=== PATIENT | male | born 1955 | race Two or more races ===

== ENCOUNTER 2017-03-27 12:22 | Inpatient (IN) | payer BC ==
[2017-03-27 13:32] VITALS: BMI 26.8
--- NOTE | 2017-03-27 17:27 | HP ---
CIWA Score - CIWA Score Nausea/Vomitin-Mild Nausea/No Vomiting Muscle Tremors: 4-Moderate,w/Arms Extend Anxiety: 4-Mod. Anxious/Guarded Agitation: 4-Moderately Restless Paroxysmal Sweats: 1-Minimal Palms Moist Orientation: 1-Uncertain about Date Tacttile Disturbances: 1-Very Mild Itch/Numbness Auditory Disturbances: 0-None Visual Disturbances: 0-None Headache: 0-None Present CIWA-Ar Total Score: 16 Admission ROS S - HPI Chief Complaint: WITHDRAWAL SX Allergies/Adverse Reactions: Allergies Allergy/AdvReac Type Severity Reaction Status Date / Time No Known Drug Allergies Allergy Verified 03/27/17 16:19 History of Present Illness: 62 YEARS OLD MALE WITH LONG HISTORY OF ALCOHOL DEPENDENCE HAS DIABETES II DEMENTIA AND DEPRESSION IS ADMITTED TO DETOX Exam Limitations: No Limitations - Ebola screening Have you traveled outside of the country in the last 21 days: No Have you had contact with anyone from an Ebola affected area: No Have you been sick,other than usual withdrawal symptoms: No Do you have a fever: No - Review of Systems Constitutional: Changes in sleep, Weight Stable EENT: reports: Hearing Loss (BOTH EARS) Respiratory: reports: SOB with Exertion, Productive cough (BROWN) Cardiac: reports: No Symptoms Reported GI: reports: Nausea, Poor Fluid Intake, Abdominal cramping : reports: No Symptoms Reported Musculoskeletal: reports: No Symptoms Reported Integumentary: reports: No Symptoms Reported Neuro: reports: Tremors Endocrine: reports: Increased Urine Hematology: reports: No Symptoms Reported Psychiatric: reports: Judgement Intact, Depressed Other Systems: Reviewed and Negative Patient History - Patient Medical History Hx Anemia: No Hx Asthma: Yes (Pt is on albuterol IH) Hx Chronic Obstructive Pulmonary Disease (COPD): No Hx Cancer: No Hx Cardiac Disorders: No Hx Congestive Heart Failure: No Hx Hypertension: No Hx Hypercholesterolemia: No Hx Pacemaker: No HX Cerebrovascular Accident: No Hx Seizures: No Hx Dementia: No Hx Diabetes: Yes (Yes, BGM: 342mg/dl) Hx Gastrointestinal Disorders: No Hx Liver Disease: No Hx Genitourinary Disorders: No Hx Sexually Transmitted Disorders: No Hx Renal Disease (ESRD): No Hx Thyroid Disease: No Hx Human Immunodeficiency Virus (HIV): No Hx Hepatitis C: No Hx Depression: Yes Hx Suicide Attempt: No Hx Bipolar Disorder: No Hx Schizophrenia: No - Patient Surgical History Past Surgical History: No Hx Neurologic Surgery: No Hx Cataract Extraction: No Hx Cardiac Surgery: No Hx Lung Surgery: No Hx Breast Surgery: No Hx Breast Biopsy: No Hx Abdominal Surgery: No Hx Appendectomy: No Hx Cholecystectomy: No Hx Genitourinary Surgery: No Hx Orthopedic Surgery: No Anesthesia Reaction: No - PPD History Previous Implant?: Yes Documented Results: Negative w/o proof Implanted On Prior R Admission?: No PPD to be Administered?: Yes - Smoking Cessation Smoking history: Never smoked Have you smoked in the past 12 months: No Hx Chewing Tobacco Use: No Initiated information on smoking cessation: No - Substance & Tx. History Hx Alcohol Use: Yes Hx Substance Use: No Substance Use Type: Alcohol Hx Substance Use Treatment: Yes (2012) - Substances Abused Alcohol Route: Oral Frequency: Daily Amount used: Beer 10 [id number] Age of first use: 26 Date of Last Use: 03/26/17 Family Disease History - Family Disease History Family Disease History: [place]: Mother (), Other: Father (), Mother , Brother (/KILLED) Admission Physical Exam [facility] - Vital Signs Vital Signs: Vital Signs - 24 hr 03/27/17 13:31 Temperature 97.0 F L Pulse Rate 118 H Respiratory 17 Rate Blood Pressure 148/90 - Physical General Appearance: Yes: Appropriately Dressed, Moderate Distress, Alcohol on Breath, Tremorous, Irritable, Sweating, Anxious HEENTM: Yes: Hearing grossly Normal, Normal ENT Inspection, Normocephalic, Normal Voice Respiratory: Yes: Chest Non-Tender, No Respiratory Distress, No Accessory Muscle Use, Wheezing, Expiration Neck: Yes: Supple, Trachea in good position Breast: Yes: Breasts Symetrical Cardiology: Yes: Regular Rhythm, S1, S2, Murmur, Tachycardia Abdominal: Yes: Non Tender, Soft, Increased Bowel Sounds Genitourinary: Yes: Within Normal Limits Back: Yes: Normal Inspection Musculoskeletal: Yes: full range of Motion, Gait Steady, Back pain Extremities: Yes: Normal Range of Motion, Non-Tender, Tremors Neurological: Yes: Alert, Motor Strength 5/5, Normal Response, Depressed Affect Integumentary: Yes: Warm Lymphatic: Yes: Within Normal Limits - Diagnostic (1) Alcohol dependence with uncomplicated withdrawal Current Visit: Yes Status: Acute (2) Asthma Current Visit: Yes Status: Chronic Qualifiers: Asthma severity: moderate Asthma complication type: with status asthmaticus (3) Dementia Current Visit: Yes Status: Chronic Qualifiers: Dementia type: associated with alcoholism Dementia behavioral disturbance: without behavioral disturbance Qualified Code(s): F10.97 - Alcohol use, unspecified with alcohol-induced persisting dementia (4) Depression with anxiety Current Visit: Yes Status: Suspected (5) Diabetes mellitus type II, uncontrolled Current Visit: Yes Status: Chronic Qualifiers: Diabetes mellitus complication status: without complication Diabetes mellitus joint terminal attack controller insulin use: without joint terminal attack controller use Qualified Code(s): E11.65 - Type 2 diabetes mellitus with hyperglycemia Cleared for Admission S - Detox or Rehab [facility] Level of Care: Medically Managed Detox Regimen/Protocol: Librium S Breath Alcohol Content Breath Alcohol Content: 0.182 Urine Drug Screen - Results Drug Screen Negative: Yes
[2017-03-27] MEDS ORDERED: MAGNESIUM CITRATE 300 ML BOTTLE PO PRN (17:34)
[2017-03-27] MEDS ORDERED: guaiFENesin/D-METHORPHAN HB 10 ML UNIT-DOSE CUPS PO PRN (17:34)
[2017-03-27] MEDS ORDERED: MAG HYDROX/AL HYDROX/SIMETH 30 ML UNIT-DOSE CUP PO PRN (17:34)
[2017-03-27] MEDS ORDERED: MENTHOL/PHENOL 1 EACH UD MM PRN (17:34)
[2017-03-27] MEDS ORDERED: chlordiazePOXIDE HCL 25 MG CAPSULE PO PRN (17:34)
[2017-03-27] MEDS ORDERED: P-EPHED 60MG/TRIPROLIDI 2.5MG TABLET PO PRN (17:34)
[2017-03-27] MEDS ORDERED: LOPERAMIDE HCL 2 MG CAPSULE PO PRN (17:34)
[2017-03-27] MEDS ORDERED: MAGNESIUM HYDROX 2400MG/30ML ORAL SUSPENSION 30 ML CUP PO PRN (17:34)
[2017-03-27] MEDS ORDERED: ALBUTEROL SO4 18 GM HFA INHALER IH PRN (17:43)
[2017-03-27] MEDS ORDERED: ALBUTEROL SO4 0.083% IH SOL 2.5 MG/3 ML VIAL.NEB. NEB PRN (17:43)
[2017-03-27] MEDS ORDERED: chlordiazePOXIDE HCL 25 MG CAPSULE PO ONE (18:45)
[2017-03-27] MEDS ORDERED: INSULIN (NOVOLOG) ASPART 100 UNITS/ML 10ML VIAL SQ ONE (19:11)
[2017-03-27] MEDS ORDERED: glipiZIDE 5 MG TABLET (FP) PO SCH (22:00)
[2017-03-27] MEDS: THIAMINE HCL 100 MG TABLET (FP) PO SCH (22:05)
[2017-03-27] MEDS: chlordiazePOXIDE HCL 25 MG CAPSULE PO SCH (22:05)
[2017-03-27 22:09] LABS: URINE APPEARANCE CLEAR; URINE BILIRUBIN NEGATIVE (NEGATIVE); URINE BLOOD 1+ (NEGATIVE); URINE COLOR STRAW; URINE GLUCOSE (UA) 3+ (NEGATIVE); URINE KETONE TRACE (NEGATIVE); URINE LEUK ESTERASE NEGATIVE (NEGATIVE); URINE NITRITE NEGATIVE (NEGATIVE); URINE PROTEIN NEGATIVE (NEGATIVE); URINE UROBILINOGEN NEGATIVE mg/dL (0.2-1.0)
[2017-03-27 23:10] LABS: URINE BACTERIA RARE /hpf (NONE SEEN); URINE MUCUS RARE
[2017-03-28] MEDS: chlordiazePOXIDE HCL 25 MG CAPSULE PO SCH ×4 (05:33→22:07)
[2017-03-28] MEDS: IBUPROFEN 400 MG TABLET (FP) PO PRN ×2 (05:55→18:19)
[2017-03-28] MEDS: metFORMIN HCL 500 MG TABLET (FP) PO SCH ×2 (06:32→17:44)
[2017-03-28] MEDS: sitaGLIPtin PHOSPHATE 100 MG TABLET (FP) PO SCH (06:32)
[2017-03-28] MEDS: glipiZIDE 5 MG TABLET (FP) PO SCH ×2 (06:33→17:44)
[2017-03-28] MEDS ORDERED: PATIENT'S OWN MEDICATION (NON-FORMULARY) (Metformin Hcl [Glucophage] 1,000 MG) PO SCH (07:00)
[2017-03-28] MEDS ORDERED: INSULIN SLIDING SCALE (NOVOLOG) 1 VIAL SQ SCH (07:00)
[2017-03-28] MEDS ORDERED: INSULIN (NOVOLOG) ASPART 100 UNITS/ML 10ML VIAL ONE ×2 (07:41→16:53)
[2017-03-28] MEDS: INSULIN SLIDING SCALE (NOVOLOG) 1 VIAL SQ SCH ×2 (07:54→17:44)
[2017-03-28 09:56] LABS: HEMATOCRIT 40.4 % (35.4-49); HEMOGLOBIN 13.4 GM/dL (11.7-16.9); MCH 27.7 pg (25.7-33.7); MCHC 33.1 g/dl (32.0-35.9); MEAN CELL VOLUME 83.6 fl (80-96); MEAN PLT VOLUME 9.7 fl (7.5-11.1); PLATELET COUNT 117 K/MM3 (134-434); RBC 4.83 M/mm3 (4.00-5.60); RDW 13.6 % (11.9-15.9); WHITE BLOOD COUNT 6.7 K/mm3 (4.0-10.0)
--- NOTE | 2017-03-28 09:58 | CONSULT ---
[facility] Psychiatric Consult - Data Date of interview: 03/28/17 Admission source: [facility] Identifying data: Pt. is a 63 year old male, single, 2 kids, unemployed, and on SSI. This is patient's first time at [facility]. Pt. admitted to for alcohol dependence. Substance Abuse History: Following information confirmed with Mr. Villarreal: * Alcohol- Route: Oral Frequency: Daily. Amount used: Beer 10 [id number]. Age of first use: 26 Date of Last Use: 03/26/17 Medical History: Asthma, diabetes. Psychiatric History: Pt. reports seeing an outpatient psychiatrist for 4 years and is currently being prescribed seroquel 100mg (has been on seroquel for 2 years). Pt. reports a diagnosis of depression and early stage dementia. As per pharmacy claims patient is currently prescribed aricept and seroquel. Claims he last took seroquel last week. States he does not take it everyday, only when he feels he needs it. Pt. denies h/o suicide attempt and psychatric hospitalization. Physical/Sexual Abuse/Trauma History: Denies. Mental Status Exam - Mental Status Exam Alert and Oriented to: Time, Place, Person Cognitive Function: Fair Patient Appearance: Unkempt Mood: Euthymic Affect: Mood Congruent Patient Behavior: Appropriate, Cooperative Speech Pattern: Appropriate Voice Loudness: Moderately Soft/Quiet Thought Process: Goal Oriented Hallucinations: Denies Suicidal Ideation: Denies Homicidal Ideation: Denies Insight/Judgement: Poor Sleep: Poorly Appetite: Fair Muscle strength/Tone: Mild Hypertonicity Gait/Station: Normal Psychiatric Findings - Problem List ([place] 1, 2,3) (1) Alcohol dependence with uncomplicated withdrawal Current Visit: Yes Status: Acute (2) MDD (major depressive disorder) Current Visit: Yes Status: Acute (3) Insomnia Current Visit: Yes Status: Acute - Initial Treatment Plan Initial Treatment Plan: Psychoeducation provided. Detoxification in progress. At this time no psychotrophic medications will be ordered due to prolong QTC of 485 on 03/28/2015. Observation.
[2017-03-28] MEDS ORDERED: DONEPEZIL HCL 5 MG TABLET (FP) PO SCH (10:00)
[2017-03-28 10:06] LABS: CHLORIDE 94 mmol/L (98-107); POTASSIUM 3.5 mmol/L (3.5-5.1); SODIUM 131 mmol/L (136-145)
[2017-03-28] MEDS: PRENATAL VITAMINS W/ FOLIC ACID TABLET (FP) PO SCH (10:06)
[2017-03-28 10:20] LABS: ALK PHOS 141 U/L (45-117); ANION GAP 9 (8-16); BILIRUBIN,TOTAL 1.3 mg/dL (0.2-1.0); BLOOD UREA NITROGEN 10 mg/dL (7-18); CALCIUM 7.9 mg/dL (8.5-10.1); CO2 28 mmol/L (21-32); CREATININE 0.7 mg/dL (0.7-1.3); SGOT/AST 81 U/L (15-37); SGPT/ALT 65 U/L (12-78); TOT PROT 6.5 g/dl (6.4-8.2)
--- NOTE | 2017-03-28 10:43 | PN ---
[facility] CIWA - CIWA Score Nausea/Vomitin-No Nausea/No Vomiting Muscle Tremors: 4-Moderate,w/Arms Extend Anxiety: 4-Mod. Anxious/Guarded Agitation: 4-Moderately Restless Paroxysmal Sweats: 1-Minimal Palms Moist Orientation: 0-Oriented Tacttile Disturbances: 3-Moderate Itch/Numb/Burn Auditory Disturbances: 0-None Visual Disturbances: 0-None Headache: 0-None Present CIWA-Ar Total Score: 16 S Progress Note (SOAP) Subjective: ANXIETY,TREMORS, IRRITABILITY,INTERMITTENT SLEEP. PT STATES HX HEART MURMUR AND HAS A MANAGER [employer] THAT SEES HIM AT [facility] BUT DOES NOT REMEMBER THE DR'S NAME. HAS A PMD, DR EZEQUIEL FUNEZ. ALERT O X 3. OOB WITH STEADY GAIT. C/O SLIGHTLY WOOZY BUT DENIES CHEST DISCOMFORT. Objective: 03/28/17 10:37 Vital Signs Temperature 97.4 F L 03/28/17 09:04 Pulse Rate 105 H 03/28/17 09:04 Respiratory Rate 18 03/28/17 09:04 Blood Pressure 146/81 03/28/17 09:04 O2 Sat by Pulse Oximetry (%) Laboratory Last Values WBC 6.7 K/mm3 (4.0-10.0) 03/28/17 07:30 RBC 4.83 M/mm3 (4.00-5.60) 03/28/17 07:30 Hgb 13.4 GM/dL (11.7-16.9) 03/28/17 07:30 Hct 40.4 % (35.4-49) 03/28/17 07:30 MCV 83.6 fl (80-96) 03/28/17 07:30 MCH 27.7 pg (25.7-33.7) 03/28/17 07:30 MCHC 33.1 g/dl (32.0-35.9) 03/28/17 07:30 RDW 13.6 % (11.9-15.9) 03/28/17 07:30 Plt Count 117 K/MM3 (134-434) L 03/28/17 07:30 MPV 9.7 fl (7.5-11.1) 03/28/17 07:30 Sodium 131 mmol/L (136-145) L 03/28/17 07:30 Potassium 3.5 mmol/L (3.5-5.1) 03/28/17 07:30 Chloride 94 mmol/L (98-107) L 03/28/17 07:30 Carbon Dioxide 28 mmol/L (21-32) 03/28/17 07:30 Anion Gap 9 (8-16) 03/28/17 07:30 BUN 10 mg/dL (7-18) 03/28/17 07:30 Creatinine 0.7 mg/dL (0.7-1.3) 03/28/17 07:30 Creat Clearance w eGFR > 60 (>60) 03/28/17 07:30 POC Glucometer 265 UNITS (80-120) 03/28/17 05:32 Calcium 7.9 mg/dL (8.5-10.1) L 03/28/17 07:30 Total Bilirubin 1.3 mg/dL (0.2-1.0) H 03/28/17 07:30 AST 81 U/L (15-37) H 03/28/17 07:30 ALT 65 U/L (12-78) 03/28/17 07:30 Alkaline Phosphatase 141 U/L (45-117) H 03/28/17 07:30 Total Protein 6.5 g/dl (6.4-8.2) 03/28/17 07:30 Albumin 3.0 g/dl (3.4-5.0) L 03/28/17 07:30 Urine Color Straw 03/27/17 21:50 Urine Appearance Clear 03/27/17 21:50 Urine pH 6.0 (5.0-8.0) 03/27/17 21:50 Ur Specific [place] 1.008 (1.001-1.035) 03/27/17 21:50 Urine Protein Negative (NEGATIVE) 03/27/17 21:50 Urine Glucose (UA) 3+ (NEGATIVE) H 03/27/17 21:50 Urine Ketones Trace (NEGATIVE) H 03/27/17 21:50 Urine Blood 1+ (NEGATIVE) H 03/27/17 21:50 Urine Nitrite Negative (NEGATIVE) 03/27/17 21:50 Urine Bilirubin Negative (NEGATIVE) 03/27/17 21:50 Urine Urobilinogen Negative mg/dL (0.2-1.0) 03/27/17 21:50 Urine WBC (Auto) <1 /hpf (3-5) 03/27/17 21:50 Urine Bacteria Rare /hpf (NONE SEEN) 03/27/17 21:50 Urine Mucus Rare 03/27/17 21:50 REPEAT EKG STILL ABNORMAL EKG--ASYMPTOMATIC. Assessment: 03/28/17 10:38 WITHDRAWAL SX Plan: CONTINUE DETOX INCREASE PO FLUIDS. MONITOR PT.
[2017-03-28 10:48] LABS: GLUCOSE,RANDOM 331 mg/dL (74-106)
--- NOTE | 2017-03-28 13:09 | EKG ---
Test Reason : Blood Pressure : / mmHG Vent. Rate : 096 BPM Atrial Rate : 096 BPM P-R Int : 126 ms QRS Dur : 086 ms QT Int : 366 ms P-R-T Axes : 075 -69 -61 degrees QTc Int : 462 ms NORMAL SINUS RHYTHM LEFT ANTERIOR FASCICULAR BLOCK PROLONGED QT ABNORMAL ECG WHEN COMPARED WITH ECG OF 27-MAR-2017 19:42, NO SIGNIFICANT CHANGE WAS FOUND Confirmed by BRIGIDA REDDY, JOSIAS ([id number]) on 03/28/2017 1:09:22 PM Referred By: Confirmed By:JOSIAS ALLRED MD
--- NOTE | 2017-03-28 13:11 | EKG ---
Test Reason : Blood Pressure : / mmHG Vent. Rate : 097 BPM Atrial Rate : 097 BPM P-R Int : 134 ms QRS Dur : 088 ms QT Int : 382 ms P-R-T Axes : 076 -73 -64 degrees QTc Int : 485 ms NORMAL SINUS RHYTHM POSSIBLE LEFT ATRIAL ENLARGEMENT LEFT ANTERIOR FASCICULAR BLOCK PROLONGED QT ABNORMAL ECG WHEN COMPARED WITH ECG OF 27-MAR-2017 19:42, PREMATURE ATRIAL COMPLEXES ARE NO LONGER PRESENT Confirmed by JOSIAS ALLRED MD ([id number]) on 03/28/2017 1:11:40 PM Referred By: Confirmed By:JOSIAS ALLRED MD
[2017-03-28] MEDS: DONEPEZIL HCL 5 MG TABLET (FP) PO SCH (22:07)
[2017-03-28] MEDS: THIAMINE HCL 100 MG TABLET (FP) PO SCH (22:07)
[2017-03-28] MEDS: ACETAMINOPHEN 325 MG TABLET (FP) PO PRN (22:08)
[2017-03-29] MEDS: chlordiazePOXIDE HCL 25 MG CAPSULE PO SCH ×3 (05:05→17:32)
[2017-03-29] MEDS ORDERED: INSULIN (NOVOLOG) ASPART 100 UNITS/ML 10ML VIAL ONE ×2 (06:20→16:53)
[2017-03-29] MEDS: metFORMIN HCL 500 MG TABLET (FP) PO SCH ×2 (06:58→17:32)
[2017-03-29] MEDS: INSULIN SLIDING SCALE (NOVOLOG) 1 VIAL SQ SCH ×2 (06:58→17:32)
[2017-03-29] MEDS: glipiZIDE 5 MG TABLET (FP) PO SCH ×2 (06:58→17:32)
[2017-03-29] MEDS: sitaGLIPtin PHOSPHATE 100 MG TABLET (FP) PO SCH (06:58)
[2017-03-29] MEDS: PRENATAL VITAMINS W/ FOLIC ACID TABLET (FP) PO SCH (10:11)
[2017-03-29] MEDS: IBUPROFEN 400 MG TABLET (FP) PO PRN (10:46)
--- NOTE | 2017-03-29 10:58 | PN ---
[facility] CIWA - CIWA Score Nausea/Vomitin-No Nausea/No Vomiting Muscle Tremors: 4-Moderate,w/Arms Extend Anxiety: 4-Mod. Anxious/Guarded Agitation: 4-Moderately Restless Paroxysmal Sweats: 1-Minimal Palms Moist Orientation: 0-Oriented Tacttile Disturbances: 3-Moderate Itch/Numb/Burn Auditory Disturbances: 0-None Visual Disturbances: 0-None Headache: 0-None Present CIWA-Ar Total Score: 16 BHS Progress Note (SOAP) Subjective: ANXIETY,SWEATS,SLIGHT TREMORS,INTERMITTENT SLEEP. Objective: 03/29/17 10:57 Laboratory Last Values WBC 6.7 K/mm3 (4.0-10.0) 03/28/17 07:30 RBC 4.83 M/mm3 (4.00-5.60) 03/28/17 07:30 Hgb 13.4 GM/dL (11.7-16.9) 03/28/17 07:30 Hct 40.4 % (35.4-49) 03/28/17 07:30 MCV 83.6 fl (80-96) 03/28/17 07:30 MCH 27.7 pg (25.7-33.7) 03/28/17 07:30 MCHC 33.1 g/dl (32.0-35.9) 03/28/17 07:30 RDW 13.6 % (11.9-15.9) 03/28/17 07:30 Plt Count 117 K/MM3 (134-434) L 03/28/17 07:30 MPV 9.7 fl (7.5-11.1) 03/28/17 07:30 Sodium 131 mmol/L (136-145) L 03/28/17 07:30 Potassium 3.5 mmol/L (3.5-5.1) 03/28/17 07:30 Chloride 94 mmol/L (98-107) L 03/28/17 07:30 Carbon Dioxide 28 mmol/L (21-32) 03/28/17 07:30 Anion Gap 9 (8-16) 03/28/17 07:30 BUN 10 mg/dL (7-18) 03/28/17 07:30 Creatinine 0.7 mg/dL (0.7-1.3) 03/28/17 07:30 Creat Clearance w eGFR > 60 (>60) 03/28/17 07:30 POC Glucometer 319 UNITS (80-120) 03/29/17 05:04 Random Glucose 331 mg/dL (74-106) H* 03/28/17 07:30 Calcium 7.9 mg/dL (8.5-10.1) L 03/28/17 07:30 Total Bilirubin 1.3 mg/dL (0.2-1.0) H 03/28/17 07:30 AST 81 U/L (15-37) H 03/28/17 07:30 ALT 65 U/L (12-78) 03/28/17 07:30 Alkaline Phosphatase 141 U/L (45-117) H 03/28/17 07:30 Total Protein 6.5 g/dl (6.4-8.2) 03/28/17 07:30 Albumin 3.0 g/dl (3.4-5.0) L 03/28/17 07:30 Urine Color Straw 03/27/17 21:50 Urine Appearance Clear 03/27/17 21:50 Urine pH 6.0 (5.0-8.0) 03/27/17 21:50 Ur Specific [place] 1.008 (1.001-1.035) 03/27/17 21:50 Urine Protein Negative (NEGATIVE) 03/27/17 21:50 Urine Glucose (UA) 3+ (NEGATIVE) H 03/27/17 21:50 Urine Ketones Trace (NEGATIVE) H 03/27/17 21:50 Urine Blood 1+ (NEGATIVE) H 03/27/17 21:50 Urine Nitrite Negative (NEGATIVE) 03/27/17 21:50 Urine Bilirubin Negative (NEGATIVE) 03/27/17 21:50 Urine Urobilinogen Negative mg/dL (0.2-1.0) 03/27/17 21:50 Ur Leukocyte Esterase Negative (NEGATIVE) 03/27/17 21:50 Urine WBC (Auto) <1 /hpf (3-5) 03/27/17 21:50 Urine Bacteria Rare /hpf (NONE SEEN) 03/27/17 21:50 Urine Mucus Rare 03/27/17 21:50 RPR Titer Nonreactive (NONREACTIVE) 03/28/17 07:30 Hepatitis C Antibody 0.2 s/co ratio (0.0-0.9) 03/28/17 07:30 Vital Signs 03/29/17 03/29/17 03/29/17 03:30 06:13 09:11 Temperature 97.4 F L 97.0 F L Pulse Rate 81 110 H Respiratory 18 18 18 Rate Blood Pressure 120/80 152/81 Assessment: 03/29/17 10:58 WITHDRAWAL SX Plan: CONTINUE DETOX
[2017-03-29] MEDS: THIAMINE HCL 100 MG TABLET (FP) PO SCH (22:09)
[2017-03-29] MEDS: DONEPEZIL HCL 5 MG TABLET (FP) PO SCH (22:09)
[2017-03-29] MEDS: chlordiazePOXIDE 5 MG CAPSULE PO SCH (22:11)
[2017-03-30] MEDS: chlordiazePOXIDE 5 MG CAPSULE PO SCH ×3 (05:46→17:03)
[2017-03-30] MEDS: metFORMIN HCL 500 MG TABLET (FP) PO SCH ×2 (06:21→17:03)
[2017-03-30] MEDS: sitaGLIPtin PHOSPHATE 100 MG TABLET (FP) PO SCH (06:21)
[2017-03-30] MEDS: glipiZIDE 5 MG TABLET (FP) PO SCH ×2 (06:22→17:03)
[2017-03-30] MEDS ORDERED: INSULIN (NOVOLOG) ASPART 100 UNITS/ML 10ML VIAL ONE ×2 (07:39→16:31)
[2017-03-30] MEDS: INSULIN SLIDING SCALE (NOVOLOG) 1 VIAL SQ SCH ×2 (07:46→17:05)
[2017-03-30] MEDS: PRENATAL VITAMINS W/ FOLIC ACID TABLET (FP) PO SCH (10:03)
[2017-03-30] MEDS: IBUPROFEN 400 MG TABLET (FP) PO PRN ×2 (10:06→17:06)
--- NOTE | 2017-03-30 15:57 | PN ---
[facility] Progress Note (SOAP) Subjective: Stomach Cramping, Nausea, Tremors, H/A, Anxious. Objective: PT. A & O X 2 (UNCERTAIN ABOUT DAY / DATE). PT. OBSERVED AMBULATING ON UNIT. NO ACUTE DISTRESS. 03/30/17 15:55 Vital Signs Temperature 97.0 F L 03/30/17 13:29 Pulse Rate 106 H 03/30/17 13:29 Respiratory Rate 18 03/30/17 13:29 Blood Pressure 123/81 03/30/17 13:29 O2 Sat by Pulse Oximetry (%) Laboratory Tests 03/27/17 03/28/17 03/28/17 21:50 05:32 07:30 WBC RBC Hgb Hct MCV MCH MCHC RDW Plt Count MPV Sodium Potassium Chloride Carbon Dioxide Anion Gap BUN Creatinine Creat Clearance w eGFR POC Glucometer 265 Random Glucose Calcium Total Bilirubin AST ALT Alkaline Phosphatase Total Protein Albumin Urine Color Straw Urine Appearance Clear Urine pH 6.0 Ur Specific [place] 1.008 Urine Protein Negative Urine Glucose (UA) 3+ H Urine Ketones Trace H Urine Blood 1+ H Urine Nitrite Negative Urine Bilirubin Negative Urine Urobilinogen Negative Ur Leukocyte Esterase Negative Urine WBC (Auto) <1 Urine Bacteria Rare Urine Mucus Rare RPR Titer Hepatitis C Antibody 0.2 03/28/17 03/28/17 03/28/17 07:30 07:30 07:30 WBC 6.7 RBC 4.83 Hgb 13.4 Hct 40.4 MCV 83.6 MCH 27.7 MCHC 33.1 RDW 13.6 Plt Count 117 L MPV 9.7 Sodium 131 L Potassium 3.5 Chloride 94 L Carbon Dioxide 28 Anion Gap 9 BUN 10 Creatinine 0.7 Creat Clearance w eGFR > 60 POC Glucometer Random Glucose 331 H* Calcium 7.9 L Total Bilirubin 1.3 H AST 81 H ALT 65 Alkaline Phosphatase 141 H Total Protein 6.5 Albumin 3.0 L Urine Color Urine Appearance Urine pH Ur Specific [place] Urine Protein Urine Glucose (UA) Urine Ketones Urine Blood Urine Nitrite Urine Bilirubin Urine Urobilinogen Ur Leukocyte Esterase Urine WBC (Auto) Urine Bacteria Urine Mucus RPR Titer Nonreactive Hepatitis C Antibody 03/28/17 03/29/17 03/29/17 16:21 05:04 16:33 WBC RBC Hgb Hct MCV MCH MCHC RDW Plt Count MPV Sodium Potassium Chloride Carbon Dioxide Anion Gap BUN Creatinine Creat Clearance w eGFR POC Glucometer 327 319 382 Random Glucose Calcium Total Bilirubin AST ALT Alkaline Phosphatase Total Protein Albumin Urine Color Urine Appearance Urine pH Ur Specific [place] Urine Protein Urine Glucose (UA) Urine Ketones Urine Blood Urine Nitrite Urine Bilirubin Urine Urobilinogen Ur Leukocyte Esterase Urine WBC (Auto) Urine Bacteria Urine Mucus RPR Titer Hepatitis C Antibody 03/30/17 05:45 WBC RBC Hgb Hct MCV MCH MCHC RDW Plt Count MPV Sodium Potassium Chloride Carbon Dioxide Anion Gap BUN Creatinine Creat Clearance w eGFR POC Glucometer 335 Random Glucose Calcium Total Bilirubin AST ALT Alkaline Phosphatase Total Protein Albumin Urine Color Urine Appearance Urine pH Ur Specific [place] Urine Protein Urine Glucose (UA) Urine Ketones Urine Blood Urine Nitrite Urine Bilirubin Urine Urobilinogen Ur Leukocyte Esterase Urine WBC (Auto) Urine Bacteria Urine Mucus RPR Titer Hepatitis C Antibody LABS NOTED. 03/30/17 15:56 Assessment: 03/30/17 15:56 WITHDRAWAL SYMPTOMS. Plan: CONTINUE DETOX.
[2017-03-30] MEDS: THIAMINE HCL 100 MG TABLET (FP) PO SCH (21:58)
[2017-03-30] MEDS: DONEPEZIL HCL 5 MG TABLET (FP) PO SCH (21:58)
[2017-03-30] MEDS: chlordiazePOXIDE HCL 10 MG CAPSULE PO SCH (22:00)
[2017-03-30] MEDS: ACETAMINOPHEN 325 MG TABLET (FP) PO PRN (22:01)
[2017-03-31] MEDS: chlordiazePOXIDE HCL 10 MG CAPSULE PO SCH (05:37)
[2017-03-31 06:11] VITALS: BP 134/84; PULSE 75; TEMP 97.1
[2017-03-31] MEDS: metFORMIN HCL 500 MG TABLET (FP) PO SCH (06:13)
[2017-03-31] MEDS: sitaGLIPtin PHOSPHATE 100 MG TABLET (FP) PO SCH (06:22)
[2017-03-31] MEDS: glipiZIDE 5 MG TABLET (FP) PO SCH (06:22)
[2017-03-31] MEDS ORDERED: INSULIN (NOVOLOG) ASPART 100 UNITS/ML 10ML VIAL ONE (06:56)
[2017-03-31] MEDS: INSULIN SLIDING SCALE (NOVOLOG) 1 VIAL SQ SCH (07:10)
--- NOTE | 2017-03-31 17:07 | DS ---
[facility] Detox Discharge Summary Admission Date: 03/27/17 Discharge Date: 03/31/17 - History Present History: Alcohol Dependence, Cocaine Dependence Pertinent Past History: DMT2 Dementia Asthma - Physical Exam Results Vital Signs: Vital Signs Temperature 97.1 F L 03/31/17 06:10 Pulse Rate 75 03/31/17 06:10 Respiratory Rate 18 03/31/17 06:10 Blood Pressure 134/84 03/31/17 06:10 O2 Sat by Pulse Oximetry (%) Pertinent Admission Physical Exam Findings: Withdrawal symptoms Laboratory Tests 03/27/17 03/28/17 03/28/17 21:50 05:32 07:30 WBC RBC Hgb Hct MCV MCH MCHC RDW Plt Count MPV Sodium Potassium Chloride Carbon Dioxide Anion Gap BUN Creatinine Creat Clearance w eGFR POC Glucometer 265 Random Glucose Calcium Total Bilirubin AST ALT Alkaline Phosphatase Total Protein Albumin Urine Color Straw Urine Appearance Clear Urine pH 6.0 Ur Specific [place] 1.008 Urine Protein Negative Urine Glucose (UA) 3+ H Urine Ketones Trace H Urine Blood 1+ H Urine Nitrite Negative Urine Bilirubin Negative Urine Urobilinogen Negative Ur Leukocyte Esterase Negative Urine WBC (Auto) <1 Urine Bacteria Rare Urine Mucus Rare RPR Titer Hepatitis C Antibody 0.2 HIV 1&2 Antibody Screen HIV P24 Antigen 03/28/17 03/28/17 03/28/17 07:30 07:30 07:30 WBC 6.7 RBC 4.83 Hgb 13.4 Hct 40.4 MCV 83.6 MCH 27.7 MCHC 33.1 RDW 13.6 Plt Count 117 L MPV 9.7 Sodium 131 L Potassium 3.5 Chloride 94 L Carbon Dioxide 28 Anion Gap 9 BUN 10 Creatinine 0.7 Creat Clearance w eGFR > 60 POC Glucometer Random Glucose 331 H* Calcium 7.9 L Total Bilirubin 1.3 H AST 81 H ALT 65 Alkaline Phosphatase 141 H Total Protein 6.5 Albumin 3.0 L Urine Color Urine Appearance Urine pH Ur Specific [place] Urine Protein Urine Glucose (UA) Urine Ketones Urine Blood Urine Nitrite Urine Bilirubin Urine Urobilinogen Ur Leukocyte Esterase Urine WBC (Auto) Urine Bacteria Urine Mucus RPR Titer Hepatitis C Antibody HIV 1&2 Antibody Screen Negative HIV P24 Antigen Negative 03/28/17 03/28/17 03/29/17 07:30 16:21 05:04 WBC RBC Hgb Hct MCV MCH MCHC RDW Plt Count MPV Sodium Potassium Chloride Carbon Dioxide Anion Gap BUN Creatinine Creat Clearance w eGFR POC Glucometer 327 319 Random Glucose Calcium Total Bilirubin AST ALT Alkaline Phosphatase Total Protein Albumin Urine Color Urine Appearance Urine pH Ur Specific [place] Urine Protein Urine Glucose (UA) Urine Ketones Urine Blood Urine Nitrite Urine Bilirubin Urine Urobilinogen Ur Leukocyte Esterase Urine WBC (Auto) Urine Bacteria Urine Mucus RPR Titer Nonreactive Hepatitis C Antibody HIV 1&2 Antibody Screen HIV P24 Antigen 03/29/17 03/30/17 03/31/17 16:33 05:45 05:37 WBC RBC Hgb Hct MCV MCH MCHC RDW Plt Count MPV Sodium Potassium Chloride Carbon Dioxide Anion Gap BUN Creatinine Creat Clearance w eGFR POC Glucometer 382 335 309 Random Glucose Calcium Total Bilirubin AST ALT Alkaline Phosphatase Total Protein Albumin Urine Color Urine Appearance Urine pH Ur Specific [place] Urine Protein Urine Glucose (UA) Urine Ketones Urine Blood Urine Nitrite Urine Bilirubin Urine Urobilinogen Ur Leukocyte Esterase Urine WBC (Auto) Urine Bacteria Urine Mucus RPR Titer Hepatitis C Antibody HIV 1&2 Antibody Screen HIV P24 Antigen Labs noted - Treatment Hospital Course: Detox Protocol Followed, Detoxed Safely, Responded well, Discharged Condition Good - Medication Discharge Medications: Ambulatory Orders Donepezil HCl [Aricept -] 5 mg PO DAILY 03/27/17 Glipizide 5 mg PO BID 03/27/17 Insulin Glargine,Hum.rec.anlog [Lantus] 20 unit SQ BID 03/27/17 Metformin HCl [Glucophage] 1,000 mg PO BID 03/27/17 Quetiapine Fumarate [Seroquel -] 100 mg PO HS 03/27/17 Sitagliptin Phosphate [Januvia -] 100 mg PO ONCE 03/27/17 - Diagnosis (1) Cocaine dependence Status: Chronic (2) Cannabis dependence Status: Chronic (3) Alcohol dependence with uncomplicated withdrawal Status: Acute (4) MDD (major depressive disorder) Status: Chronic (5) Asthma Status: Chronic Qualifiers: Asthma severity: moderate Asthma persistence: unspecified Asthma complication type: with status asthmaticus Qualified Code(s): J45.902 - Unspecified asthma with status asthmaticus (6) Dementia Status: Chronic Qualifiers: Dementia type: associated with alcoholism Dementia behavioral disturbance: without behavioral disturbance Qualified Code(s): F10.97 - Alcohol use, unspecified with alcohol-induced persisting dementia (7) Diabetes mellitus type II, uncontrolled Status: Chronic Qualifiers: Diabetes mellitus complication status: without complication Diabetes mellitus snf insulin use: without branch controller use Qualified Code(s): E11.65 - Type 2 diabetes mellitus with hyperglycemia (8) Nicotine dependence Status: Chronic - AMA Did Patient Leave Against Medical Advice: No (F/U with PCP within 1 week)
== END 2017-03-31 08:07 | disposition home or self-care (01) | DRG 774 ==
LOC: YASAS 12:22 → Y3N 17:12
PROVIDERS: ADMIT Internal Medicine; ATTEND Internal Medicine
PROC: HZ2ZZZZ Detoxification Services for Substance Abuse Treatment (ICD-10-PCS; principal; 2017-03-27)
DX: F10.230 Alcohol dependence with withdrawal, uncomplicated (principal); F10.27 Alcohol dependence with alcohol-induced persisting dementia; F14.20 Cocaine dependence, uncomplicated; F12.20 Cannabis dependence, uncomplicated; F17.210 Nicotine dependence, cigarettes, uncomplicated; F33.9 Major depressive disorder, recurrent, unspecified; F41.8 Other specified anxiety disorders; E11.65 Type 2 diabetes mellitus with hyperglycemia; R94.31 Abnormal electrocardiogram [ECG] [EKG]; G47.00 Insomnia, unspecified; Z79.82 Long term (current) use of aspirin; Z79.4 Long term (current) use of insulin
CPT/HCPCS: 36415; 80053; 81003; 81015; 85027; 86593; 86803; 87389; 93005; 93010; 94640